=== PATIENT | female | born 1985 | race Caucasian/White ===

== ENCOUNTER 2016-11-02 09:44 | Inpatient (IN) | payer BC, OTHER ==
[2016-11-02 10:03] VITALS: BMI 40.8
--- NOTE | 2016-11-02 10:19 | ED PDOC ---
HPI: Abdomen Time Seen by Provider: 11/02/16 09:45 Chief Complaint (Provider): pelvic pain History Per: Patient History/Exam Limitations: no limitations Onset/Duration Of Symptoms: Days (x 1week) Outside of [place] travel?: No Additional Complaint(s): Jannie Hugo is a 31 year old female, with no previous medical history, who was sent to the ED by dr boyd for evaluation of ongoing pain after being diagnosed with a dermoid cyst 1 week ago at [facility]. Patient denies any fever, chills, nausea, vomiting or urinary symptoms. PMD: Past Medical History Reviewed: Historical Data, Nursing Documentation, Vital Signs Vital Signs: Last Vital Signs Temp 98.3 F 11/02/16 14:55 Pulse 86 11/02/16 14:55 Resp 18 11/02/16 14:55 BP 119/84 11/02/16 14:55 Pulse Ox 99 11/02/16 14:55 - Medical History PMH: No Chronic Diseases - Surgical History Surgical History: (x 2) - Family History Family History: States: No Known Family Hx - Social History Current smoker - smoking cessation education provided: No Alcohol: None Drugs: Cocaine (clean for 10 years) - Home Medications Home Medications: Ambulatory Orders Medication Instructions Recorded No Known Home Med 11/02/16 - Allergies Allergies/Adverse Reactions: Allergies Allergy/AdvReac Type Severity Reaction Status Date / Time No Known Allergies Allergy Verified 11/02/16 10:19 Review of Systems ROS Statement: Except As Marked, All Systems Reviewed And Found Negative Constitutional: Negative for: Fever, Chills Gastrointestinal: Negative for: Nausea, Vomiting, Diarrhea Genitourinary Female: Negative for: Dysuria, Frequency, Incontinence, Hematuria Physical Exam - Reviewed Nursing Documentation Reviewed: Yes Vital Signs Reviewed: Yes - Physical Exam Appears: Positive for: Well, Non-toxic, No Acute Distress Head Exam: Positive for: ATRAUMATIC, NORMAL INSPECTION, NORMOCEPHALIC Skin: Positive for: Normal Color, Warm, DRY Eye Exam: Positive for: EOMI, Normal appearance, PERRL ENT: Positive for: Normal ENT Inspection Neck: Positive for: Normal, Painless ROM Cardiovascular/Chest: Positive for: Regular Rate, Rhythm Respiratory: Positive for: CNT, Normal Breath Sounds Gastrointestinal/Abdominal: Positive for: Bowel Sounds, Soft, Tenderness (on the right side) Back: Positive for: Normal Inspection Extremity: Positive for: Normal ROM Neurologic/Psych: Positive for: Alert, Oriented - Laboratory Results Result Diagrams: 11/02/16 10:30 11/02/16 10:30 - ECG O2 Sat by Pulse Oximetry: 99 (RA) Pulse Ox Interpretation: Normal Medical Decision Making Medical Decision Making: Initial Impression: dermoid cyst Initial Plan: * US pelvic * urinalysis * urine culture * labs * reevaluation 14:[address] Boyd, and US results discussed with him (6 cm dermoid cyst) who will evaluate the patient at bedside. Dr boyd will take pt to the OR, and pt to be dc home afterwards admission order placed Scribe Attestation: Documented by Radha Moran, acting as a scribe for Ivonne Danielson MD. Provider Scribe Attestation: All medical record entries made by the Scribe were at my direction and personally dictated by me. I have reviewed the chart and agree that the record accurately reflects my personal performance of the history, physical exam, medical decision making, and the department course for this patient. I have also personally directed, reviewed, and agree with the discharge instructions and disposition. ED OBSERVATION Date of observation admission: 11/02/16 - Observation admission statement Patient is being placed in observation because:: pelvic pain and ED work up - Goals of Observation Goals of observation are:: alleviation of symptoms and results of ED workup. Disposition - Clinical Impression Clinical Impression: Abdominal pain, Dermoid cyst - Patient ED Disposition Is Patient to be Admitted: Yes Counseled Patient/Family Regarding: Studies Performed, Diagnosis - Disposition Disposition Time: 10:20 Condition: STABLE
[2016-11-02 10:39] LABS: BASO # 0.1 K/uL (0.0-0.2); BASO % 0.9 % (0.0-2.0); EOS # 0.2 K/uL (0.0-0.7); EOS % 1.8 % (0.0-4.0); HEMOGLOBIN 14.2 g/dL (12.0-16.0); LYMPH # 2.5 K/uL (1.0-4.3); LYMPH % 23.3 % (20.0-40.0); MEAN CELL VOLUME 83.4 fl (81.0-99.0); MEAN CORPUSCULAR HEMOGLOBIN 28.4 pg (27.0-31.0); MEAN CORPUSCULAR HGB CONC 34.1 g/dL (33.0-37.0); MEAN PLATELET VOLUME 7.9 fl (7.2-11.7); MONO # 0.5 K/uL (0.0-0.8); MONO % 4.7 % (0.0-10.0); NEUT # 7.4 K/uL (1.8-7.0); NEUT % 69.3 % (50.0-75.0); NRBC % 0.1 % (0.0-0.0); RBC 5.02 Mil/uL (3.80-5.20); RED CELL DISTRIBUTION WIDTH 14.3 % (11.5-14.5); WHITE BLOOD COUNT 10.7 K/uL (4.8-10.8)
[2016-11-02 10:50] LABS: ALB/GLOB RATIO 1.3 (1.0-2.1); ALBUMIN 4.3 g/dL (3.5-5.0); ALT/SGPT 53 U/L (9-52); AST/SGOT 23 U/L (14-36); BLOOD UREA NITROGEN 13 mg/dl (7-17); CALCIUM 9.3 mg/dL (8.4-10.2); GFR AFRICAN-AMERICAN > 60; GFR NON-AFRICAN AMERICAN > 60
[2016-11-02 11:02] LABS: SQUAMOUS EPITHIAL 1 /hpf (0-5); URINE BILIRUBIN NEGATIVE (NEGATIVE); URINE BLOOD NEGATIVE (NEGATIVE); URINE CLARITY CLEAR (Clear); URINE COLOR YELLOW (YELLOW); URINE GLUCOSE (UA) NEG (Normal); URINE LEUKOCYTE ESTERASE NEG Leu/uL (Negative); URINE NITRATE NEGATIVE (NEGATIVE); URINE PROTEIN NEGATIVE (NEGATIVE); URINE UROBILINOGEN 0.2-1.0 mg/dL (0.2-1.0)
--- NOTE | 2016-11-02 13:36 | US ---
HISTORY: pelvic pain, history of dermoid cyst COMPARISON: None available. TECHNIQUE: Transabdominal FINDINGS: UTERUS: Measures 11.2 x 5.9 x 3.8 cm. Normal in size and appearance. No fibroid or other mass lesion seen. ENDOMETRIUM: Measures 9 mm in diameter. Unremarkable. CERVIX: No cervical abnormality identified. RIGHT OVARY: Measures 3.1 x 2.7 x 2.7 cm. No solid mass. Normal flow. LEFT OVARY: Not visualized FREE FLUID: No significant free fluid noted. OTHER FINDINGS: Posterior to the uterus, there is a heterogeneously echogenic mass measuring approximately 4.8 x 4.8 x 6.0 cm. This may represent a dermoid tumor. There is reported history of dermoid cyst without any corresponding imaging studies. . IMPRESSION: 6.0 cm heterogeneously echogenic mass posterior to the uterus, possibly a dermoid tumor. Please correlate with outside imaging studies if available.
[2016-11-02] MEDS ORDERED: Succinylcholine 200 mg/10 ml Inj IV ONE (14:48)
[2016-11-02] MEDS ORDERED: Propofol 10 mg/ml Inj (20 ML) ONE (14:48)
[2016-11-02] MEDS ORDERED: Rocuronium 10 mg/ml (5 ml) ONE ×2 (14:48→16:28)
[2016-11-02] MEDS ORDERED: Phenylephrine 10 mg/ml Inj ONE (14:49)
--- NOTE | 2016-11-02 15:03 | CP.PCM.HP ---
History of Present Illness - History of Present Illness History of Present Illness: 31-year-old female approximately 10 day history of abdominal and pelvic pain. Patient was in [facility] emergency department approximately 3 days ago. Patient had abdominal pelvic CT which reported dermoid cyst. Patient came to [facility] today. Patient reports worsening lower abdominal and pelvic pain. Denies any fevers or chills, urinary symptoms, diarrhea or constipation, any gastrointestinal symptoms. Patient states that pain is intermittent but has worsened over the past 10 days. Present on Admission - Present on Admission Any Indicators Present on Admission: No History of DVT/PE: No History of Uncontrolled Diabetes: No Urinary Catheter: No Past Patient History - Past Social History Smoking Status: Never Smoked - GENITOURINARY/GYNECOLOGICAL Hx Genitourinary Disorders: Yes Other/Comment: "OVARY MASS" - PSYCHIATRIC Hx Substance Use: No - SURGICAL HISTORY Hx Surgeries: Yes Hx Section: Yes - ANESTHESIA Hx Anesthesia: Yes Hx Anesthesia Reactions: No Meds Allergies/Adverse Reactions: Allergies Allergy/AdvReac Type Severity Reaction Status Date / Time No Known Allergies Allergy Verified 11/02/16 10:19 Physical Exam - Constitutional Appears: Well - Head Exam Head Exam: NORMOCEPHALIC - Eye Exam Eye Exam: EOMI, PERRL - ENT Exam ENT Exam: Mucous Membranes Moist - Respiratory Exam Respiratory Exam: Clear to Auscultation Bilateral, NORMAL BREATHING PATTERN - Cardiovascular Exam Cardiovascular Exam: REGULAR RHYTHM - GI/Abdominal Exam GI & Abdominal Exam: Normal Bowel Sounds Additional comments: Positive diffuse lower abdominal tenderness. No rebound or guarding. Results - Vital Signs Recent Vital Signs: Last Vital Signs Temp 98.3 F 11/02/16 14:55 Pulse 86 11/02/16 14:55 Resp 18 11/02/16 14:55 BP 119/84 11/02/16 14:55 Pulse Ox 99 11/02/16 14:55 - Labs Result Diagrams: 11/02/16 10:30 11/02/16 10:30 Labs: Laboratory Results - last 24 hr 11/02/16 10:45 Urine Color Yellow Urine Clarity Clear Urine pH 6.0 Ur Specific [place] 1.006 Urine Protein Negative Urine Glucose (UA) Neg Urine Ketones Negative Urine Blood Negative Urine Nitrate Negative Urine Bilirubin Negative Urine Urobilinogen 0.2-1.0 Ur Leukocyte Esterase Neg Urine RBC (Auto) 2 Urine Microscopic WBC < 1 Ur Squamous Epith Cells 1 - Imaging and Cardiology CT scan - pelvis Status: Report reviewed by me US - abdomen Status: Report reviewed by me Assessment & Plan - Assessment and Plan (Free Text) Assessment: Adnexal cyst approximately 6 cm consistent with dermoid cyst. Acute abdominal pain. Plan: I discussed all options with patient including expected management, simple control with medical management, and surgical management. Patient states that the pain is worsening and that he cannot function due to the level of pain. Patient opting for surgical management. I discussed with patient all options. Patient consented for laparoscopy, possible laparotomy, ovarian cystectomy, possible ovarian removal. I discussed with patient the risks, benefits, alternatives of surgery including risks of bleeding risks of infection and risks of organ damage. All patient questions answered. - Date & Time Date: 11/02/16 Time: 15:05
[2016-11-02] MEDS ORDERED: Bupivacaine 0.5% Inj(30mL) ONE (15:25)
[2016-11-02] MEDS ORDERED: Lidocaine 1% Inj (20ml) ONE (15:25)
[2016-11-02] MEDS ORDERED: Ketamine 50 mg/ml Inj (10 ml) ONE (15:26)
[2016-11-02] MEDS ORDERED: Lidocaine 4% (Laryng-O-Jet) Kit MM ONE (15:29)
[2016-11-02] MEDS ORDERED: Lactated Ringer's 1,000 ML IV ONE ×3 (15:31→19:54)
[2016-11-02] MEDS ORDERED: Dexamethasone 4 mg/1 ml ONE (15:59)
[2016-11-02] MEDS ORDERED: Neostigmine Methylsulfate 2 MG/2 ML ML IV ONE (15:59)
[2016-11-02] MEDS ORDERED: Neostigmine Methylsulfate 3mg/3ml Syringe IV ONE (15:59)
[2016-11-02] MEDS ORDERED: Desflurane Inhalation Anesthetic Liq (240 ml) ONE (16:02)
[2016-11-02] MEDS: HYDROmorphone 0.5 mg/0.5 ml ISec IVP PRN ×5 (17:41→18:32)
[2016-11-02] MEDS ORDERED: Lactated Ringer's 1,000 ML IV SCH (17:45)
[2016-11-02] MEDS ORDERED: DiphenhydrAMINE 50 mg/ml Inj IVP PRN (19:15)
[2016-11-02] MEDS ORDERED: Naloxone 0.4 mg/ml Inj (Adult) IVP PRN (19:15)
[2016-11-03] MEDS: Lactated Ringer's 1,000 ML IV SCH ×3 (02:47→18:27)
--- NOTE | 2016-11-03 08:09 | PCM.SURG1 ---
Surgeon's Initial Post Op Note - Surgeon's Notes Surgeon: Deb Recreation Technician: Corie Type of Anesthesia: General Endo Anesthesia Administered By: Carbanello Pre-Operative Diagnosis: Dermoid Cyst, acute abdominal pain Operative Findings: Left ovarian mass c/w dermoid cyst, edematous and slightly necrotic, ~10-12cm in size, normal uterus, normal right ovary, moderate pelvic and abdominal adhesions Post-Operative Diagnosis: same Operation Performed: Laparoscopy, laparotomy, LSO Specimen/Specimens Removed: Left adnexa Estimated Blood Loss: EBL {In ML}: 200 Blood Products Given: N/A Drains Used: No Drains Post-Op Condition: Good Date of Surgery/Procedure: 11/02/16 Time of Surgery/Procedure: 17:00
--- NOTE | 2016-11-03 08:14 | CP.PCM.PN ---
Subjective - Date & Time of Evaluation Date of Evaluation: 11/03/16 Time of Evaluation: 08:12 - Subjective Subjective: patient without complaints. Patient reports pain well controlled. patient denies any nausea or vomiting, fevers or chills, chest pain or shortness of breath. Objective - Vital Signs/Intake and Output Vital Signs (last 24 hours): Temp Pulse Resp BP Pulse Ox 98.7 F 87 19 124/75 99 11/03/16 05:00 11/03/16 05:00 11/03/16 05:00 11/03/16 05:00 11/03/16 05:00 Intake and Output: 11/03/16 11/03/16 06:59 18:59 Intake Total 2000 Output Total 650 Balance 1350 - Medications Medications: Current Medications Diphenhydramine HCl (Benadryl) 25 mg IVP Q6 PRN PRN Reason: Itching / Pruritus Enoxaparin Sodium (Lovenox) 40 mg SC DAILY JAREN PRN Reason: Protocol Hydromorphone HCl (Dilaudid 0.2 Mg/Ml Plumbing Engineer) 0 mg IV PRN PRN; Protocol PRN Reason: Pain, moderate (4-7) Last Admin: 11/02/16 20:00 Dose: 0.2 mg Lactated Ringer's (Lactated Ringer's) 1,000 mls @ 100 mls/hr IV .Q10H [facility] Lactated Ringer's (Lactated Ringer's) 1,000 mls @ 125 mls/hr IV .Q8H [facility] Last Admin: 11/03/16 02:47 Dose: 125 mls/hr Naloxone HCl (Narcan) 0.1 mg IVP Q2M PRN PRN Reason: Excess sedation Ondansetron HCl (Zofran Inj) 4 mg IVP Q8 PRN PRN Reason: Nausea/Vomiting Oxycodone/Acetaminophen (Percocet 5/325 Mg Tab) 2 tab PO Q4 PRN PRN Reason: Pain, severe (8-10) Stop: 11/05/16 19:53 - Constitutional Appears: Well, Non-toxic, No Acute Distress - Head Exam Head Exam: NORMOCEPHALIC - Eye Exam Eye Exam: EOMI, PERRL - ENT Exam ENT Exam: Mucous Membranes Moist - Respiratory Exam Respiratory Exam: Clear to Ausculation Bilateral, NORMAL BREATHING PATTERN - Cardiovascular Exam Cardiovascular Exam: REGULAR RHYTHM - GI/Abdominal Exam Additional comments: Soft/NT/ND Inc C/D/I Port sites C/D/I x 3 Assessment and Plan - Assessment and Plan (Free Text) Assessment: ostoperative #1 status post laparoscopy, laparotomy, left salpingo- oophorectomy. Patient recovering well Plan: bed ambulate Postoperative CBC PAIN CONTROL advance diet as tolerated Lovenox for DVT proph
[2016-11-03] MEDS: Enoxaparin 40 mg Syringe SC SCH (09:14)
[2016-11-03] MEDS: Oxycodone/Acetaminophen 5/325 mg Tab PO PRN ×2 (09:21→16:40)
[2016-11-03 10:19] LABS: HEMOGLOBIN 12.6 g/dL (12.0-16.0); MEAN CELL VOLUME 84.1 fl (81.0-99.0); MEAN CORPUSCULAR HEMOGLOBIN 27.5 pg (27.0-31.0); MEAN CORPUSCULAR HGB CONC 32.7 g/dL (33.0-37.0); RBC 4.56 Mil/uL (3.80-5.20); RED CELL DISTRIBUTION WIDTH 14.5 % (11.5-14.5); WHITE BLOOD COUNT 14.8 K/uL (4.8-10.8)
[2016-11-04 00:31] VITALS: O2SAT 99
[2016-11-04] MEDS: Enoxaparin 40 mg Syringe SC SCH (09:13)
[2016-11-04 09:36] VITALS: BP 118/70; PULSE 73; RESP 20; TEMP 99.2
--- NOTE | 2016-11-04 09:43 | CP.PCM.PN ---
Subjective - Date & Time of Evaluation Date of Evaluation: 11/04/16 Time of Evaluation: 09:40 - Subjective Subjective: She feels fine. Wants to go home. +BM. Tolerating diet Objective - Vital Signs/Intake and Output Vital Signs (last 24 hours): Temp Pulse Resp BP Pulse Ox 99.2 F 73 20 118/70 99 11/04/16 09:15 11/04/16 09:15 11/04/16 09:15 11/04/16 09:15 11/04/16 09:15 - Medications Medications: Current Medications Diphenhydramine HCl (Benadryl) 25 mg IVP Q6 PRN PRN Reason: Itching / Pruritus Enoxaparin Sodium (Lovenox) 40 mg SC DAILY JAREN PRN Reason: Protocol Last Admin: 11/04/16 09:13 Dose: 40 mg Lactated Ringer's (Lactated Ringer's) 1,000 mls @ 100 mls/hr IV .Q10H JAREN Lactated Ringer's (Lactated Ringer's) 1,000 mls @ 125 mls/hr IV .Q8H [facility] Last Admin: 11/03/16 18:27 Dose: 125 mls/hr Ibuprofen (Motrin Tab) 600 mg PO Q6 PRN PRN Reason: pain level 1-4 Last Admin: 11/04/16 00:51 Dose: 600 mg Naloxone HCl (Narcan) 0.1 mg IVP Q2M PRN PRN Reason: Excess sedation Ondansetron HCl (Zofran Inj) 4 mg IVP Q8 PRN PRN Reason: Nausea/Vomiting Last Admin: 11/03/16 20:30 Dose: 4 mg Oxycodone/Acetaminophen (Percocet 5/325 Mg Tab) 2 tab PO Q4 PRN PRN Reason: Pain, severe (8-10) Stop: 11/05/16 19:53 Last Admin: 11/03/16 16:40 Dose: 2 tab - Labs Labs: 11/03/16 09:00 - Constitutional Appears: Well, Non-toxic - Respiratory Exam Respiratory Exam: NORMAL BREATHING PATTERN - Cardiovascular Exam Cardiovascular Exam: REGULAR RHYTHM - GI/Abdominal Exam GI & Abdominal Exam: Soft, Normal Bowel Sounds. absent: Rigid, Tenderness, Rebound Additional comments: Umbilicus no sign of infection; Pfannenstiel incision - stapples in place (no sign of infiection) Assessment and Plan (1) Dermoid cyst Status: Acute - Assessment and Plan (Free Text) Assessment: S/P laparoscopy/opan laparotomy for dermoid; LSO Plan: Discharge home and follow up next week
--- NOTE | 2016-11-04 09:46 | CP.PCM.DIS ---
Provider - Provider Date of Admission: 11/02/16 14:37 Attending physician: Thang Boyd MD Time Spent in preparation of Discharge (in minutes): 10 Diagnosis - Discharge Diagnosis (1) Dermoid cyst Status: Acute Hospital Course - Lab Results Lab Results: Most Recent Lab Values WBC 14.8 K/uL (4.8-10.8) H 11/03/16 09:00 RBC 4.56 Mil/uL (3.80-5.20) 11/03/16 09:00 Hgb 12.6 g/dL (12.0-16.0) 11/03/16 09:00 Hct 38.4 % (34.0-47.0) 11/03/16 09:00 MCV 84.1 fl (81.0-99.0) 11/03/16 09:00 MCH 27.5 pg (27.0-31.0) 11/03/16 09:00 MCHC 32.7 g/dL (33.0-37.0) L 11/03/16 09:00 RDW 14.5 % (11.5-14.5) 11/03/16 09:00 Plt Count 321 K/uL (130-400) 11/03/16 09:00 MPV 7.9 fl (7.2-11.7) 11/02/16 10:30 Neut % (Auto) 69.3 % (50.0-75.0) 11/02/16 10:30 Lymph % (Auto) 23.3 % (20.0-40.0) 11/02/16 10:30 [place] % (Auto) 4.7 % (0.0-10.0) 11/02/16 10:30 Eos % (Auto) 1.8 % (0.0-4.0) 11/02/16 10:30 Baso % (Auto) 0.9 % (0.0-2.0) 11/02/16 10:30 Neut # 7.4 K/uL (1.8-7.0) H 11/02/16 10:30 Lymph # 2.5 K/uL (1.0-4.3) 11/02/16 10:30 [place] # 0.5 K/uL (0.0-0.8) 11/02/16 10:30 Eos # 0.2 K/uL (0.0-0.7) 11/02/16 10:30 Baso # 0.1 K/uL (0.0-0.2) 11/02/16 10:30 Sodium 139 mmol/l (132-148) 11/02/16 10:30 Potassium 4.7 MMOL/L (3.6-5.0) 11/02/16 10:30 Chloride 105 mmol/L (98-107) 11/02/16 10:30 Carbon Dioxide 23 mmol/L (22-30) 11/02/16 10:30 Anion Gap 15 (10-20) 11/02/16 10:30 BUN 13 mg/dl (7-17) 11/02/16 10:30 Creatinine 0.8 mg/dL (0.7-1.2) 11/02/16 10:30 Est GFR ( Amer) > 60 11/02/16 10:30 Est GFR (Non-Af Amer) > 60 11/02/16 10:30 Random Glucose 94 mg/dL (65-105) 11/02/16 10:30 Calcium 9.3 mg/dL (8.4-10.2) 11/02/16 10:30 Total Bilirubin 0.5 mg/dl (0.2-1.3) 11/02/16 10:30 AST 23 U/L (14-36) 11/02/16 10:30 ALT 53 U/L (9-52) H 11/02/16 10:30 Alkaline Phosphatase 41 U/L (38-126) 11/02/16 10:30 Total Protein 7.6 G/DL (6.3-8.2) 11/02/16 10:30 Albumin 4.3 g/dL (3.5-5.0) 11/02/16 10:30 Globulin 3.2 gm/dL (2.2-3.9) 11/02/16 10:30 Albumin/Globulin Ratio 1.3 (1.0-2.1) 11/02/16 10:30 Urine Color Yellow (YELLOW) 11/02/16 10:45 Urine Clarity Clear (Clear) 11/02/16 10:45 Urine pH 6.0 (5.0-8.0) 11/02/16 10:45 Ur Specific [place] 1.006 (1.003-1.030) 11/02/16 10:45 Urine Protein Negative mg/dL (NEGATIVE) 11/02/16 10:45 Urine Glucose (UA) Neg mg/dL (Normal) 11/02/16 10:45 Urine Ketones Negative mg/dL (NEGATIVE) 11/02/16 10:45 Urine Blood Negative (NEGATIVE) 11/02/16 10:45 Urine Nitrate Negative (NEGATIVE) 11/02/16 10:45 Urine Bilirubin Negative (NEGATIVE) 11/02/16 10:45 Urine Urobilinogen 0.2-1.0 mg/dL (0.2-1.0) 11/02/16 10:45 Ur Leukocyte Esterase Neg Ela/uL (Negative) 11/02/16 10:45 Urine RBC (Auto) 2 /hpf (0-3) 11/02/16 10:45 Urine Microscopic WBC < 1 /hpf (0-5) 11/02/16 10:45 Ur Squamous Epith Cells 1 /hpf (0-5) 11/02/16 10:45 - Hospital Course Hospital Course: Operation November 02 - laparoscopy/Laparotmy; LSO for dermoid...discharged home POD 2 - Date & Time of H&P Date of H&P: 10/26/16 Discharge Exam - Head Exam Head Exam: NORMOCEPHALIC - GI/Abdominal Exam GI & Abdominal Exam: Unremarkable Discharge Plan - Follow Up Plan Condition: STABLE Disposition: HOME/ ROUTINE
--- NOTE | 2016-11-09 17:05 | OP ---
PROCEDURE DATE: 11/02/2016 PREOPERATIVE DIAGNOSIS: Acute abdominal pain, dermoid cyst. POSTOPERATIVE DIAGNOSIS: Acute abdominal pain, dermoid cyst. PROCEDURE: Attempted laparoscopy, laparotomy, left salpingo-oophorectomy SURGEON: Dr. Pauly Boyd. TRANSPORT RN: Dr. Fontenot. Dr. Fontenot was present from the beginning of the procedure to the end of procedure. Dr. Fontenot was integral in exposing the surgical field, controlling intraoperative bleeding, and removal of dermoid cyst. OPERATIVE FINDINGS: Left ovarian mass approximately 10-12 cm in size consistent with dermoid cyst, mass in left ovary appeared edematous and swollen with a large amount of solid components. Normal uterus, normal right ovary, moderate pelvic and abdominal adhesions. ESTIMATED BLOOD LOSS: 200 mL. IV FLUID INTAKE: 1200 mL of lactated Ringer's. URINE OUTPUT: 200 mL of clear urine at the end of procedure. ANESTHESIA: General. ANESTHESIOLOGIST: Dr. Pinto. DESCRIPTION OF PROCEDURE: The patient was taken to the operating room, where general anesthesia was found to be adequate. The patient was prepped and draped in normal sterile fashion in the dorsal lithotomy position. A weighted speculum was placed at the posterior aspect of the vagina. A retractor was placed at the anterior surface of the vagina. The surface was grasped with a single tooth tenaculum at the anterior surface. The cervix was dilated with Hearn dilator to a size of 20-Khmer. A Zumi uterine manipulator was placed through the cervix into the uterine cavity. The tenaculum was removed under direct visualization. Attention was then turned to the abdomen. The abdomen was prepped and draped in a normal sterile fashion. Approximately 1 cm incision was placed at the umbilicus. The Veress needle was placed through this incision into the abdominal cavity. After proper location confirmed, the abdominal cavity was inflated with CO2 gas to a pressure of 15 mmHg. The Veress needle was removed from the abdominal cavity. An 11 mm trocar was placed through the umbilical incision into the abdominal cavity. The laparoscope was placed through the trocar, the abdomen and pelvis were explored and the above findings noted. A 5 mm accessory port sites were placed under direct visualization bilaterally. The ovarian mass was initially found to be located in the posterior cul-de-sac. After removal of adhesions sharply with LigaSure device, the mass was removed from the posterior cul-de-sac and examined. After thorough examination of mass completed, it was found to be swollen as well as largely solid in nature. At this point in the surgery, due to the complex and solid nature of the mass, it was decided to proceed with laparotomy. The laparoscopic instruments were removed from the patient. The laparoscope was removed. A Pfannenstiel skin incision was made with a scalpel. This was carried down through to the underlying layer of fascia with the scalpel. Midline dissection was made in fascial layer with the scalpel. The fascial incision was then extended bilaterally sharply with electrocautery. The fascial layer was from the underlying rectus muscles both bluntly and sharply with curved Lubin scissors. The rectus muscles were at the midline. The peritoneum was then identified, tented up with Yaa clamps x2, entered sharply with Metzenbaum scissors. This peritoneal incision was then extended superiorly and inferiorly with the good visualization of the urinary bladder. Bladder blade was inserted . The left ovarian mass was identified and exteriorized. The left infundibulopelvic ligament as well as suspensory ligament of the ovary was clamped with Lenore clamps x2, transected and removed, suture ligated with 0 Vicryl x2. Reinspection of the surgical pedicle proved hemostatic. The abdomen and pelvis were irrigated with a copious amounts of warm normal saline. Reinspection of the surgical pedicle proved hemostasis. All instruments were removed from the patient. The peritoneal layers were closed with a running stitch of 2-0 chromic. The rectus muscles were re-approximated at the midline with a running suture of 2-0 chromic. The fascial layer was closed with a running stitch of 0 Vicryl. Subcutaneous tissue was re-approximated at the midline with a running stitch of 3-0 plain. The skin was closed with dane. Attention was then turned to the laparoscopic port sites. The fascial layer of the umbilical port site as well as the accessory port sites were closed with a [id number] suture of 0 Vicryl. The skin for the laparoscopic port site was closed with Dermabond. The patient tolerated the procedure well. There were no complications. All sponge count, lap count, and needle counts were correct x2. The patient was given 2 g of Ancef when the surgery converted from laparoscopy to laparotomy. There were no complications. The patient was taken to the recovery room in awake and stable condition. Thang Boyd MD
== END 2016-11-04 12:45 | disposition home or self-care (01) | DRG 743 ==
LOC: H.ER 09:44 → H.EROBSV 10:37 → OBSVTOIN 14:37 → H.ERHOLD 15:06 → H.PEDS 20:34
PROVIDERS: ADMIT Obstetrics & Gynecology; ATTEND Obstetrics & Gynecology
PROC: 0UT10ZZ Resection of Left Ovary, Open Approach (ICD-10-PCS; 2016-11-02)
PROC: 0UT60ZZ Resection of Left Fallopian Tube, Open Approach (ICD-10-PCS; principal; 2016-11-02 15:30)
DX: D27.1 Benign neoplasm of left ovary (principal); N73.6 Female pelvic peritoneal adhesions (postinfective)